=== PATIENT | female | born 1945 | race Caucasian/White ===

== ENCOUNTER 2018-01-17 15:27 | Emergency (ER) | payer MEDICARE, BC ==
--- NOTE | 2018-01-17 16:40 | EDM.PDOC ---
ED HPI GENERAL MEDICAL PROBLEM - General Chief Complaint: Lower Extremity Injury/Pain Stated Complaint: RT SIDE POSSIBLE BREAK IN HIP PROSHTESIS Time Seen by Provider: 01/17/18 16:03 Source of Information: Reports: Patient, Family, RN Notes Reviewed History Limitations: Reports: No Limitations - History of Present Illness INITIAL COMMENTS - FREE TEXT/NARRATIVE: 72-year-old female presents to the emergency department day complaint of right hip pain, she does have a known history of hip implant that she has had for the last 10 years, she states over the last week or so she's had increasing pain no nausea vomiting fevers she is traveling back to [place] and she is concerned about the car ride which will exacerbate her pain she has no pain medication Right Hip Pain Score (Numeric/FACES): 10 - Related Data Allergies Allergy/AdvReac Type Severity Reaction Status Date / Time codeine Allergy Itching Verified 01/17/18 16:12 Home Meds: Home Meds Aspirin [Adult Aspirin] 81 mg PO DAILY 01/17/18 [History] Aspirin/Acetaminophen/Caffeine [Migraine Formula Caplet] 1 tab PO ASDIRECTED PRN 01/17/18 [History] Calcium Carbonate/Vitamin D3 [Calcium 600 + Vit D Tablet] 1 tab PO DAILY [History] Cetirizine [ZyrTEC] 10 mg PO DAILY 01/17/18 [History] Cranberry 400 mg PO DAILY 01/17/18 [History] DULoxetine HCl [Duloxetine HCl] 30 mg PO DAILY 01/17/18 [History] Naproxen 900 mg PO BID 01/17/18 [History] Pantoprazole Sodium 40 mg PO DAILY 01/17/18 [History] Rizatriptan Benzoate [Rizatriptan] 10 mg PO ASDIRECTED PRN 01/17/18 [History] Travoprost [Travatan Z 0.004% Ophth Soln] 1 drop TOP DAILY 01/17/18 [History] atorvaSTATin Calcium [Atorvastatin Calcium] 40 mg PO DAILY 01/17/18 [History] Past Medical History HEENT History: Reports: Cataract, Glaucoma Cardiovascular History: Reports: High Cholesterol [employer] History: Reports: Musculoskeletal History: Reports: Back Pain, Chronic, Fracture, Osteoarthritis, Osteoporosis Neurological History: Reports: Migraines - Past Surgical History HEENT Surgical History: Reports: Adenoidectomy, Cataract Surgery, Tonsillectomy Female Surgical History: Reports: Tubal Ligation Other Neurological Surgeries/Procedures: l2 l3 microdisectomy Musculoskeletal Surgical History: Reports: Arthroscopic Procedure, Hip Replacement, Shoulder Surgery Other Musculoskeletal Surgeries/Procedures:: bilateral Social & Family History - Tobacco Use Smoking Status *Q: Never Smoker - Caffeine Use Caffeine Use: Reports: Coffee, Soda - Recreational Drug Use Recreational Drug Use: No Review of Systems - Review of Systems Review Of Systems: See Below Musculoskeletal: Reports: Joint Pain (Right hip pain) Skin: Reports: No Symptoms Neurological: Reports: No Symptoms ED EXAM, GENERAL - Physical Exam Exam: See Below Free Text/Narrative:: Examination the right hip I don't appreciate any erythema there is no edema noted she is tender to palpation over the greater trochanter she's tender with internal and external rotation as well no tenderness with flexing and extending of the hip, she can bear weight but it does hurt Exam Limited By: No Limitations General Appearance: Alert, WD/WN, No Apparent Distress Respiratory/Chest: No Respiratory Distress Course - Vital Signs Last Recorded V/S: Last Vital Signs Temp 98.1 F 01/17/18 16:10 Pulse 92 01/17/18 16:10 Resp 18 01/17/18 16:10 BP 118/77 01/17/18 16:10 Pulse Ox 96 01/17/18 16:10 - Orders/Labs/Meds Orders: Active Orders 24 hr Category Date Time Status Hip Min 2V or 3V Rt [CR] Stat Exams 01/17/18 16:38 Taken Hip wo Cont Rt [CT] Stat Exams 01/17/18 17:07 Ordered Departure - Departure Time of Disposition: 18:20 Disposition: Home, Self-Care 01 Condition: Fair Clinical Impression: Hip pain Qualifiers: Laterality: right Qualified Code(s): M25.551 - Pain in right hip - Discharge Information Referrals: PCP,None [Primary Care Provider] - Forms: ED Department Discharge Additional Instructions: Use ibuprofen for baseline pain control, use hydrocodone for breakthrough pain, please follow-up with orthopedic surgeon upon return home - My Orders Last 24 Hours: My Active Orders 01/17/18 16:38 Hip Min 2V or 3V Rt [CR] Stat 01/17/18 17:07 Hip wo Cont Rt [CT] Stat - Assessment/Plan Last 24 Hours: My Active Orders 01/17/18 16:38 Hip Min 2V or 3V Rt [CR] Stat 01/17/18 17:07 Hip wo Cont Rt [CT] Stat Plan: Assessment Acuity = acute Site and laterality = right sided hip pain complicated patient with known history of arthroplasty Etiology = unknown etiology Manifestations = none Location of injury = Home Lab values = x-ray and CT scan show no acute fracture Plan Patient will be traveling back to [place] to see her orthopedic surgeon prescription written for hydrocodone 5/325 one tab by mouth 3 times a day when necessary total #12 This note was dictated using [employer] voice recognition software please call with any questions on syntax or grammar.
--- NOTE | 2018-01-18 09:25 | CR ---
Hip Min 2V or 3V Rt CLINICAL HISTORY: Right hip pain FINDINGS: No acute fracture or dislocation is noted. Patient has a total hip arthroplasty. Components appear well seated. Impression: Total right hip arthroplasty appears intact
== END 2018-01-17 18:51 | disposition home or self-care (01) ==
LOC: JP.ED 15:27
DX: M25.551 Pain in right hip (principal); E78.00 Pure hypercholesterolemia, unspecified; Z88.5 Allergy status to narcotic agent; Z79.899 Other long term (current) drug therapy; Z98.890 Other specified postprocedural states
CPT/HCPCS: 73502-26-RT; 73502-RT; 73700-RT; 99284-25